=== PATIENT | male | born 1980 | race American Indian/Alaskan Native ===

== ENCOUNTER 2024-05-01 12:26 | Emergency (ER) | payer OTHER ==
[~2024-05-01] VITALS: Ht 182.9 cm; Wt 108.7 kg
[2024-05-01 13:20] LABS: BASOPHILS 0.4 % (0-2); EOSINOPHILS 2.1 % (0-6); HEMATOCRIT 43.9 % (35.0-50.0); HEMOGLOBIN 14.5 g/dL (12.0-18.0); LYMPHOCYTES 25.6 % (24-44); MCH 29.6 (27-36); MCHC 32.9 g/dl (30-36); MCV 89.9 fl (81-99); MONOCYTES 5.9 % (0-12); PLATELET COUNT 301 K/uL (140-440); RBC 4.89 M/ul (4.3-5.7); RDW 13.2 (10.5-15.0)
[2024-05-01 13:32] LABS: ALBUMIN/GLOBULIN RATIO 1.08 (1.1-2.4); ALKALINE PHOSPHATASE 88 U/L (46-116); ALT (SGPT) 23 U/L (14-59); ANION GAP 12.3 (7-21); AST (SGOT) 39 U/L (15-37); BILIRUBIN, TOTAL 0.6 ng/dL (0.2-1.0); BUN/CREATININE RATIO 12.24 (6.0-28.6); CALCIUM 8.7 mg/dL (8.5-10.1); CARBON DIOXIDE 28 mmol/L (21-32); CHLORIDE 103 mmol/L (98-107); CREATININE, SERUM 0.98 mg/dL (0.70-1.30); GLOMERULAR FILTRATION RATE,EST 97 mL/min (>60); POTASSIUM 4.3 mmol/L (3.5-5.1); PROTEIN, TOTAL 7.7 g/dL (6.4-8.2); UREA NITROGEN 12 mg/dL (7-18)
[2024-05-01 14:13] VITALS: BP 136/81
--- NOTE | 2024-05-02 19:32 | EKG ---
[facility] [address] [facility] [place], [place] [address] Signed Normal sinus rhythm Normal ECG No previous ECGs available Confirmed by NERISSA ARGUELLO MD ([id number]) on 05/02/2024 7:32:15 PM Electronically Signed By: NERISSA ARGUELLO 05/02/24 193 PATIENT NAME: YESICA KEITA SAHRA Electrocardiogram DATE OF : 78 PHYSICIAN: NERISSA ARGUELLO REPORT #: [id number] REPORT IS CONFIDENTIAL AND NOT TO BE RELEASED WITHOUT AUTHORIZATION
== END 2024-05-01 14:13 | disposition home or self-care (01) ==
LOC: ED 12:26
PROVIDERS: Emergency Medicine
DX: R07.9 Chest pain, unspecified (principal); I10 Essential (primary) hypertension
CPT/HCPCS: 36415; 71045; 80053; 84484; 85025; 93005; 93010; 99285-25